=== PATIENT | female | born 1965 | race Caucasian/White ===

== ENCOUNTER → 2019-11-01 | Outpatient (CLI) | payer MEDICARE | END | disposition home or self-care (01) | LOC: RAD 05:09 | DX: M47.816 Spondylosis without myelopathy or radiculopathy, lumbar region (principal); M47.812 Spondylosis without myelopathy or radiculopathy, cervical region; M43.16 Spondylolisthesis, lumbar region ==

== ENCOUNTER 2025-02-21 16:10 | Emergency (ER) | payer OTHER ==
[~2025-02-21] VITALS: Ht 160 cm; Wt 85.7 kg
[2025-02-21] MEDS ORDERED: Tdap Vaccine 0.5 ML SYR (Adult Vaccine) IM ONE (16:50)
[2025-02-21] MEDS ORDERED: METHOCARBAMOL500 M1 PO (17:44)
[2025-02-21] MEDS ORDERED: METHOCARBAMOL 500 MG TAB PO ONE (17:45)
[2025-02-21] MEDS ORDERED: ACETAMINOPHEN 325 MG TAB PO ONE (17:45)
== END 2025-02-21 18:00 | disposition home or self-care (01) ==
LOC: ED 16:10
DX: S01.01XA Laceration without foreign body of scalp, initial encounter (principal); S09.90XA Unspecified injury of head, initial encounter; R11.0 Nausea; I10 Essential (primary) hypertension; F32.A Depression, unspecified; W01.198A Fall on same level from slipping, tripping and stumbling with subsequent striking against other object, initial encounter; Y93.89 Activity, other specified; Y92.89 Other specified places as the place of occurrence of the external cause; Y99.8 Other external cause status

== ENCOUNTER 2025-03-01 21:12 | Emergency (ER) | payer OTHER ==
[~2025-03-01] VITALS: Ht 160 cm; Wt 88.5 kg
[~2025-03-01 21:12] MED LIST: METHOCARBAMOL500 M1 PO
== END 2025-03-01 21:44 | disposition home or self-care (01) ==
LOC: ED 21:12
DX: S01.01XD Laceration without foreign body of scalp, subsequent encounter (principal); I10 Essential (primary) hypertension; F32.A Depression, unspecified; X58.XXXD Exposure to other specified factors, subsequent encounter